=== PATIENT | female | born 1985 | race Two or more races ===

== ENCOUNTER 2016-09-23 20:16 | Emergency (ER) | payer SELFPAY ==
[2016-09-23] MEDS ORDERED: DIPHENHYDRAMINE HCL 50 MG/ML VIAL IV ONE (23:56)
[2016-09-23] MEDS ORDERED: METOCLOPRAMIDE HCL INJ/PF 10 MG/2 ML SDV IV ONE (23:56)
--- NOTE | 2016-09-23 23:58 | ER Document Report ---
ED General - General Chief Complaint: Nausea/Vomiting Stated Complaint: VOMITING Notes: Patient is a 31-year-old female presents with complaint of vomiting . She says for last month she said vomiting but become much worse last week. She says she's having a hard time holding down liquids or food. She's been taking vitamin B 6. She's been taking Phenergan. She continues to vomit despite these. No fevers. No social abdominal pain. No vaginal bleeding. No diarrhea. No other complaints this time. This is her third . She said she had vomiting with the first 2 pregnancies but no or near to the extent that she has but this one. Her first appointment is scheduled for tomorrow. TRAVEL OUTSIDE OF THE [place] IN LAST 30 DAYS: No - Related Data Allergies/Adverse Reactions: No Known Allergies Allergy (Verified 09/24/16 01:27) Past Medical History - Social History Smoking Status: Never Smoker Frequency of alcohol use: None Drug Abuse: None Family History: Reviewed & Not Pertinent Renal/ Medical History: Denies: Hx Peritoneal Dialysis Review of Systems - Review of Systems Notes: My Normal Review Basic REVIEW OF SYSTEMS: CONSTITUTIONAL : Denies fever, chills, or sweats. Denies recent illness. RESPIRATORY: Denies cough, cold, or chest congestion. Denies shortness of breath, difficulty breathing, or wheezing. GASTROINTESTINAL: Denies abdominal pain. Recurrent vomiting Denies constipation. Last BM: GENITOURINARY: Denies difficulty urinating, painful urination, burning, frequency, or blood in urine. FEMALE GENITOURINARY: Denies vaginal bleeding, abnormal or irregular periods. LMP: Currently MUSCULOSKELETAL: Denies neck or back pain or joint pain or swelling. SKIN: Denies rash or skin lesions. NEUROLOGICAL: Denies altered mental status or loss of consciousness. Denies headache. Denies weakness or paralysis or loss of use of either side. Denies problems with gait or speech. Denies sensory or motor loss. ALL OTHER SYSTEMS REVIEWED AND NEGATIVE. Physical Exam - Vital signs Vitals: Temp Pulse BP Pulse Ox 98.3 F 103 H 104/67 100 09/23/16 20:44 09/23/16 20:44 09/23/16 20:44 09/23/16 20:44 - Notes Notes: General Appearance: Well nourished, alert, cooperative, no acute distress, no obvious discomfort. Vitals: reviewed, See vital signs table. Head: no swelling or tenderness to the head Eyes: PERRL, EOMI, Conjuctiva clear Mouth: No decreasd moisture Neck: Supple, no neck tenderness, No thyromegaly Lungs: No wheezing, No rales, No rhonci, No accessory muscle use, good air exchange bilaterally. Heart: Tachycardic rate, Regular rythm, No murmur, no rub Abdomen: Normal BS, soft, No rigidity, No abdominal tenderness, No guarding, no rebound, no abdominal masses, no organomegaly Extremities: strength 5/5 in all extremities, good pulses in all extremities, no swelling or tenderness in the extremities, no edema. Skin: warm, dry, appropriate color, no rash Neuro: speech clear, oriented x 3, normal affect, responds appropriately to questions. Course - Vital Signs Vital signs: Temp Pulse Resp BP Pulse Ox 98.3 F 92 20 111/75 99 09/24/16 00:40 09/24/16 00:40 09/24/16 00:40 09/24/16 00:40 09/24/16 00:40 - Laboratory Result Diagrams: 09/24/16 00:45 09/24/16 00:45 Laboratory results interpreted by me: 09/24/16 09/24/16 09/24/16 00:45 00:45 01:55 WBC 11.3 H Absolute Neutrophils 8.5 H Potassium 3.4 L Calcium 11.2 H Beta HCG, Quant 212890.00 H Urine Protein 30 H Urine Ketones 80 H Ur Leukocyte Esterase MODERATE H Urine Ascorbic Acid 40 H - Transfer of Care Notes: 09/24/16 03:29 The Reglan seems to have worked well for the patient. She is feeling better. She has been drinking water without any further vomiting. Her electrolytes are normal except for mild hypokalemia. I have given her potassium here. She'll be discharged home with prescription for Reglan. She has an appointment with her OB doctor tomorrow. I encourage her to keep this appointment to follow-up with them. Encouraged to return to ER immediately if she has intractable vomiting, fevers, vaginal bleeding, abdominal pain ,or feels unwell. Patient was given 2 L of IV fluids. Patient agrees with plan will be discharged home. Dictation of this chart was performed using voice recognition software; therefore, there may be some unintended grammatical errors. Discharge - Discharge Clinical Impression: Hyperemesis gravidarum Condition: Good Disposition: HOME, SELF-CARE Additional Instructions: Hyperemesis Gravidarum Hyperemesis gravidarum is the medical term for severe vomiting during . We don't know exactly why it occurs, but it's a common problem. Dehydration can occur. This reduces blood flow to the placenta, decreasing the baby's nourishment. The baby will also become dehydrated. There can be harmful changes in blood sodium, potassium, or acid balance. Our goal is to correct, and prevent, dehydration. For severe cases, we give IV fluids. Antinausea medication will be prescribed. (Don't be concerned about " defects" -- the risk to you and your baby from the hyperemesis is the biggest problem. The antinausea medication is very safe at this stage of .) Call the doctor if you have vaginal bleeding, abdominal pain, severe lightheadedness or weakness, or other alarming symptoms. Please return to the ER immediately if you develop recurrent vomiting not responding to the medication, fevers, abdominal pain, or vaginal bleeding. Prescriptions: Metoclopramide HCl [Reglan 10 mg Tablet] 1 tab PO ASDIR PRN #25 tablet PRN Reason:
[2016-09-24] MEDS: NORMAL SALINE 1000 ML 1,000 ML IV PRN ×2 (00:51→01:59)
[2016-09-24 01:10] LABS: ABSOLUTE BASOPHILS # (AUTO) 0.1 10^3/uL (0.0-0.2); ABSOLUTE LYMPHOCYTES (AUTO) 1.9 10^3/uL (0.5-4.7); ABSOLUTE MONOCYTES (AUTO) 0.8 10^3/uL (0.1-1.4); ABSOLUTE NEUT (AUTO) 8.5 10^3/uL (1.7-8.2); BASOPHILS % (AUTO) 0.7 % (0-2); EOSINOPHILS % (AUTO) 0.3 % (0-6); HEMATOCRIT 42.4 % (36.0-47.0); HEMOGLOBIN 14.7 g/dL (12.0-15.5); HGB HCT DIFFERENCE 1.7; LYMPHOCYTES % (AUTO) 16.8 % (13-45); MEAN CORPUSCULAR HEMOGLOBIN 29.1 pg (27.0-33.4); MEAN CORPUSCULAR HGB CONC 34.6 g/dL (32.0-36.0); MEAN CORPUSCULAR VOLUME 84 fl (80-97); MONOCYTES % (AUTO) 7.1 % (3-13); RED BLOOD COUNT 5.03 10^6/uL (3.72-5.28); RED CELL DISTRIBUTION WIDTH 12.3 % (11.5-14.0); SEGMENTED NEUTROPHILS % (AUTO) 75.1 % (42-78); WHITE BLOOD COUNT 11.3 10^3/uL (4.0-10.5)
[2016-09-24 01:51] LABS: ANION GAP 16 (5-19); BLOOD UREA NITROGEN 11 mg/dL (7-20); CALCIUM 11.2 mg/dL (8.4-10.2); CARBON DIOXIDE 23 mmol/L (22-30); CHLORIDE 102 mmol/L (98-107); CREATININE RESULT 0.74 mg/dL (0.52-1.25); GLUCOSE 90 mg/dL (75-110); POTASSIUM 3.4 mmol/L (3.6-5.0); SODIUM 140.5 mmol/L (137-145)
[2016-09-24 02:33] LABS: APPEARANCE,URINE CLOUDY; BILIRUBIN,URINE NEGATIVE (NEGATIVE); GLUCOSE, URINE NEGATIVE (NEGATIVE); KETONES,URINE 80 mg/dL (NEGATIVE); LEUKOCYTE ESTERASE,URINE MODERATE (NEGATIVE); NITRITE,URINE NEGATIVE (NEGATIVE); PROTEIN,URINE 30 mg/dL (NEGATIVE); URINE SPECIFIC GRAVITY 1.025; UROBILINOGEN,URINE NEGATIVE mg/dL (<2.0)
[2016-09-24] MEDS ORDERED: POTASSIUM CHLORIDE 10 MEQ TABLET.SA PO ONE (02:46)
[2016-09-24] MEDS ORDERED: METOCLOPRAMIDE HCL INJ/PF 10 MG/2 ML SDV IV ONE (03:27)
[2016-09-24 03:55] VITALS: BP 128/88
== END 2016-09-24 03:52 | disposition home or self-care (01) ==
LOC: ER 20:16
DX: O21.1 Hyperemesis gravidarum with metabolic disturbance (principal); O26.899 Other specified pregnancy related conditions, unspecified trimester; R00.0 Tachycardia, unspecified; Z79.899 Other long term (current) drug therapy; Z3A.00 Weeks of gestation of pregnancy not specified
CPT/HCPCS: 96376; 99284; 96361; 96374; 96375; 36415; 84702; 83735; 85025; 80048; 81001; J1200; J2765; J7030

== ENCOUNTER 2017-02-23 16:58 | Outpatient (CLI) | payer SELFPAY ==
[2017-02-23 17:58] LABS: APPEARANCE,URINE SLIGHTLY-CLOUDY; BILIRUBIN,URINE NEGATIVE (NEGATIVE); GLUCOSE, URINE NEGATIVE (NEGATIVE); KETONES,URINE NEGATIVE (NEGATIVE); LEUKOCYTE ESTERASE,URINE LARGE (NEGATIVE); NITRITE,URINE NEGATIVE (NEGATIVE); PROTEIN,URINE NEGATIVE (NEGATIVE); URINE SPECIFIC GRAVITY 1.014
[2017-02-23 18:16] LABS: URINE BARBITURATES SCREEN NEGATIVE; URINE METHADONE SCREEN NEGATIVE; URINE OPIATES LOW NEGATIVE; URINE PHENCYCLIDINE SCREEN NEGATIVE
--- NOTE | 2017-02-23 18:35 | Non Stress Test Report ---
Non Stress Test Datetime Report Generated by CPN: 02/23/2017 18:35 DEMOGRAPHIC EGA NST: 33.3 INDICATION Indication for Study: Ordered by Provider MONITORING Monitor Explained: Monitor Explained; Test Explained; Patient Verbalized Understanding Time on Monitor: 02/23/2017 17:38 Time off Monitor: 02/23/2017 18:14 NST Duration: 36 NST INTERVENTIONS NST Interventions: None Physician Notified NST: Dr Alvarez (Annotations: Data stored by CPN on behalf of user) BABY A: [id number] BABY A Movement : Present Contraction Frequency : irregular FHR Baseline : 125 Accelerations : 15X15 Decelerations : None Variability : Moderate 6-25bpm NST Review: Meets Criteria for Reactive NST NST Review and Verified By : LEOBARDO Caballero Results: Reactive NST REPORT Report Trigger: Send Report (Annotations: Data stored by Melissa on behalf of user)
== END 2017-02-23 18:22 | disposition home or self-care (01) ==
LOC: LC 16:58
PROVIDERS: ATTEND Obstetrics & Gynecology
DX: O47.03 False labor before 37 completed weeks of gestation, third trimester (principal); Z3A.33 33 weeks gestation of pregnancy
CPT/HCPCS: 59025; 80307; 81001

== ENCOUNTER 2017-03-26 09:55 | Outpatient (CLI) | payer SELFPAY | END 2017-03-26 10:47 | disposition home or self-care (01) | LOC: LC 09:55 | PROVIDERS: ATTEND Obstetrics & Gynecology | PROC: 4A1HXCZ Monitoring of Products of Conception, Cardiac Rate, External Approach (ICD-10-PCS; principal; 2017-03-26) | DX: O36.5930 Maternal care for other known or suspected poor fetal growth, third trimester, not applicable or unspecified (principal); Z3A.37 37 weeks gestation of pregnancy | CPT/HCPCS: 59025 ==

== ENCOUNTER 2017-03-29 09:20 | Outpatient (CLI) | payer SELFPAY ==
--- NOTE | 2017-03-29 09:23 | Non Stress Test Report ---
Non Stress Test Datetime Report Generated by CPN: 03/29/2017 09:23 DEMOGRAPHIC EGA NST: 37.6 INDICATION Indication for Study: Intrauterine Growth Restriction MONITORING Monitor Explained: Monitor Explained; Test Explained; Patient Verbalized Understanding Time on Monitor: 03/26/2017 10:13 Time off Monitor: 03/26/2017 10:44 NST Duration: 31 NST INTERVENTIONS NST Interventions: PO Hydration; Reposition Patient Physician Notified NST: A. Emmel, CNM BABY A: [id number] BABY A Movement : Present Contraction Frequency : 0 FHR Baseline : 115 Accelerations : 15X15 Decelerations : None Variability : Moderate 6-25bpm NST Review: Meets Criteria for Reactive NST NST Review and Verified By : LEOBARDO Mohan Results: Reactive NST REPORT Report Trigger: Send Report
--- NOTE | 2017-03-29 10:08 | Non Stress Test Report ---
Non Stress Test Datetime Report Generated by CPN: 03/29/2017 10:07 DEMOGRAPHIC EGA NST: 38.2 INDICATION Indication for Study: Intrauterine Growth Restriction MONITORING Monitor Explained: Monitor Explained; Test Explained; Patient Verbalized Understanding Time on Monitor: 03/29/2017 09:31 Time off Monitor: 03/29/2017 09:53 NST Duration: 22 NST INTERVENTIONS NST Interventions: PO Hydration Physician Notified NST: K. Oreilly BABY A Movement : Present Contraction Frequency : 1 traced FHR Baseline : 120 Accelerations : 15X15 Decelerations : None Variability : Moderate 6-25bpm NST Review: Meets Criteria for Reactive NST NST Review and Verified By : Em Fitzpatrick RNWinnie NST Results: Reactive NST REPORT Report Trigger: Send Report
[2017-03-29 10:14] LABS: APPEARANCE,URINE CLOUDY; BILIRUBIN,URINE NEGATIVE (NEGATIVE); GLUCOSE, URINE NEGATIVE (NEGATIVE); KETONES,URINE NEGATIVE (NEGATIVE); LEUKOCYTE ESTERASE,URINE LARGE (NEGATIVE); NITRITE,URINE NEGATIVE (NEGATIVE); PROTEIN,URINE NEGATIVE (NEGATIVE); URINE SPECIFIC GRAVITY 1.009; UROBILINOGEN,URINE NEGATIVE mg/dL (<2.0)
[2017-03-29 10:34] LABS: URINE BARBITURATES SCREEN NEGATIVE; URINE METHADONE SCREEN NEGATIVE; URINE OPIATES LOW NEGATIVE; URINE PHENCYCLIDINE SCREEN NEGATIVE
--- NOTE | 2017-03-29 10:45 | RADIOLOGY REPORT (SQ) ---
EXAM DESCRIPTION: U/S OB LIMITED COMPLETED DATE/TIME: 03/29/2017 10:12 am REASON FOR STUDY: MARYJANE for severe IUGR COMPARISON: None. TECHNIQUE: Limited transabdominal grayscale ultrasound for evaluation of specific requested obstetri lisa parameters. LIMITATIONS: None. FINDINGS: CERVICAL LENGTH: Not measured Closed. MARYJANE: 8.9 cm. FHR: 130 beats per minute. PRESENTATION: Cephalic. OTHER: Gestational age 38 weeks 2 days. Estimated date of delivery 04/10/2017. IMPRESSION: LIMITED OBSTETRICAL ULTRASOUND WITH MEASURED PARAMETERS DELINEATED ABOVE. Trimester of : Third trimester - 28 weeks to delivery. TECHNICAL DOCUMENTATION: JOB ID: [id number] [employer]- All Rights Reserved
== END 2017-03-29 10:44 | disposition home or self-care (01) ==
LOC: LC 09:20
PROVIDERS: ATTEND Obstetrics & Gynecology
PROC: 4A1HXCZ Monitoring of Products of Conception, Cardiac Rate, External Approach (ICD-10-PCS; principal; 2017-03-29)
DX: O36.5930 Maternal care for other known or suspected poor fetal growth, third trimester, not applicable or unspecified (principal); Z3A.38 38 weeks gestation of pregnancy
CPT/HCPCS: 59025; 76815; 80307; 81005; 87086

== ENCOUNTER 2017-04-02 09:08 | Outpatient (CLI) | payer SELFPAY ==
--- NOTE | 2017-04-02 10:35 | Non Stress Test Report ---
Non Stress Test Datetime Report Generated by CPN: 04/02/2017 10:35 DEMOGRAPHIC EGA NST: 38.6 INDICATION Indication for Study: Ordered by Provider Indication for Study (NST) Other: iugr VITAL SIGNS Temperature - NST: 99.0 Pulse - NST: 75 NBPSYS NST: 117 NBPDIA NST: 70 MONITORING Monitor Explained: Monitor Explained; Test Explained; Patient Verbalized Understanding Time on Monitor: 04/02/2017 09:23 Time off Monitor: 04/02/2017 10:01 NST Duration: 38 NST INTERVENTIONS NST Interventions: PO Hydration; Reposition Patient Physician Notified NST: Dr. Alvarez BABY A: [id number] BABY A Movement : Present Contraction Frequency : rare FHR Baseline : 120 Accelerations : 15X15 Decelerations : None Variability : Moderate 6-25bpm NST Review: Meets Criteria for Reactive NST NST Review and Verified By : LEOBARDO Hand Results: Reactive NST REPORT Report Trigger: Send Report
== END 2017-04-02 10:15 | disposition home or self-care (01) ==
LOC: LC 09:08 → LR 04-03 21:31 → UNDOADMIN 04-03 21:31
PROVIDERS: ATTEND Obstetrics & Gynecology
PROC: 4A1HXCZ Monitoring of Products of Conception, Cardiac Rate, External Approach (ICD-10-PCS; principal; 2017-04-02)
DX: O36.5930 Maternal care for other known or suspected poor fetal growth, third trimester, not applicable or unspecified (principal); Z3A.38 38 weeks gestation of pregnancy
CPT/HCPCS: 59025

== ENCOUNTER 2017-04-03 21:46 | Inpatient (IN) | payer SELFPAY ==
[2017-04-03 22:19] LABS: APPEARANCE,URINE CLOUDY; BILIRUBIN,URINE NEGATIVE (NEGATIVE); GLUCOSE, URINE NEGATIVE (NEGATIVE); KETONES,URINE NEGATIVE (NEGATIVE); LEUKOCYTE ESTERASE,URINE LARGE (NEGATIVE); NITRITE,URINE NEGATIVE (NEGATIVE); PROTEIN,URINE NEGATIVE (NEGATIVE); URINE SPECIFIC GRAVITY 1.004; UROBILINOGEN,URINE NEGATIVE mg/dL (<2.0)
[2017-04-03 22:38] LABS: URINE BARBITURATES SCREEN NEGATIVE; URINE METHADONE SCREEN NEGATIVE; URINE OPIATES LOW NEGATIVE; URINE PHENCYCLIDINE SCREEN NEGATIVE
[2017-04-03 22:45] LABS: ABSOLUTE BASOPHILS # (AUTO) 0.1 10^3/uL (0.0-0.2); ABSOLUTE EOSINOPHILS # (AUTO) 0.1 10^3/uL (0.0-0.6); ABSOLUTE LYMPHOCYTES (AUTO) 1.7 10^3/uL (0.5-4.7); ABSOLUTE MONOCYTES (AUTO) 0.7 10^3/uL (0.1-1.4); ABSOLUTE NEUT (AUTO) 4.5 10^3/uL (1.7-8.2); BASOPHILS % (AUTO) 0.9 % (0-2); HEMATOCRIT 29.9 % (36.0-47.0); HGB HCT DIFFERENCE 0.1; LYMPHOCYTES % (AUTO) 24.5 % (13-45); MEAN CORPUSCULAR HEMOGLOBIN 28.1 pg (27.0-33.4); MEAN CORPUSCULAR HGB CONC 33.3 g/dL (32.0-36.0); MEAN CORPUSCULAR VOLUME 84 fl (80-97); MONOCYTES % (AUTO) 9.8 % (3-13); RED BLOOD COUNT 3.54 10^6/uL (3.72-5.28); RED CELL DISTRIBUTION WIDTH 16.1 % (11.5-14.0); SEGMENTED NEUTROPHILS % (AUTO) 63.8 % (42-78); WHITE BLOOD COUNT 7.1 10^3/uL (4.0-10.5)
[2017-04-03] MEDS ORDERED: OXYTOCIN/NORMAL SALINE 20 UNIT/1,000 ML RTUINJ ONE (22:48)
[2017-04-03] MEDS ORDERED: RINGERS SOLUTION,LACTATED 300 ML IV ONE (22:53)
[2017-04-03] MEDS ORDERED: OXYTOCIN/NORMAL SALINE 20 UNIT/1,000 ML RTUINJ IV PRN (22:53)
[2017-04-03] MEDS ORDERED: PENICILLIN G-K 5 MILLION UNIT VIAL ONE (23:05)
[2017-04-03] MEDS ORDERED: PENICILLIN G POTASSIUM 5,000,000 UNIT in DEXTROSE 5%-WATER 100 ML IV ONE (23:08)
[2017-04-04] MEDS ORDERED: PENICILLIN G-K 5 MILLION UNIT VIAL ONE ×4 (03:12→14:57)
[2017-04-04] MEDS: RINGERS SOLUTION,LACTATED 1,000 ML IV PRN ×3 (03:23→13:43)
[2017-04-04] MEDS: PENICILLIN G POTASSIUM 2,500,000 UNIT in DEXTROSE 5%-WATER 50 ML IV SCH ×3 (03:23→11:18)
[2017-04-04] MEDS ORDERED: FENTANYL/BUPIVACAINE/NS/PF 200 MCG/100 ML RTUINJ EPI ONE (13:13)
[2017-04-04] MEDS ORDERED: EPHEDRINE SULFATE INJ 50 MG/1 ML AMPULE ONE (13:13)
[2017-04-04] MEDS ORDERED: MISOPROSTOL 0.2 MG TABLET ONE (13:14)
[2017-04-04] MEDS ORDERED: BUPIVACAINE HCL 0.25 % INJ/PF (2.5 MG/1 ML) 30 ML VIAL ONE (13:14)
[2017-04-04] MEDS ORDERED: LIDOCAINE 1% INJ-PF (10 MG/ML) 30 ML SDV ONE (13:15)
[2017-04-04] MEDS ORDERED: OXYTOCIN/NORMAL SALINE 20 UNIT/1,000 ML RTUINJ IV PRN (17:37)
[2017-04-04] MEDS ORDERED: ACETAMINOPHEN 650 MG SUPP.RECT PR PRN (17:37)
[2017-04-04] MEDS ORDERED: DIPHENHYDRAMINE HCL 25 MG CAPSULE PO PRN (17:37)
[2017-04-04] MEDS ORDERED: BENZOCAINE/MENTHOL AEROSOL SPRAY 56 ML TOP PRN (17:37)
[2017-04-04] MEDS ORDERED: PROMETHAZINE HCL INJ 25 MG/1 ML VIAL IV PRN (17:37)
[2017-04-04] MEDS ORDERED: MEASLES,MUMPS&RUBELLA VACC/PF 0.5 ML VIAL SUBCUT PRN (17:37)
[2017-04-04] MEDS ORDERED: ACETAMINOPHEN WITH CODEINE #3 TABLET PO PRN ×2 (17:37)
[2017-04-04] MEDS ORDERED: PROMETHAZINE HCL 25 MG SUPP.RECT PR PRN (17:37)
[2017-04-04] MEDS ORDERED: PSEUDOEPHEDRINE HCL 30 MG TABLET PO PRN (17:37)
[2017-04-04] MEDS ORDERED: PROMETHAZINE HCL 25 MG TABLET PO PRN (17:37)
[2017-04-04] MEDS ORDERED: ZOLPIDEM TARTRATE 5 MG TABLET PO PRN (17:37)
[2017-04-04] MEDS ORDERED: GLYCERIN/WITCH HAZEL LEAF 1 EACH MED..PAD TP PRN (17:37)
[2017-04-04] MEDS ORDERED: DIPH/PERTUSS(ACELL)/TETANUS VAC/PF 0.5 ML SYR (>=10YO) IM PRN (17:37)
[2017-04-04] MEDS ORDERED: NA PHOS,M-B/NA PHOS,DI-BA (ADULT) 133 ML ENEMA PR PRN (17:37)
[2017-04-04] MEDS ORDERED: MAGNESIUM HYDROXIDE SUSP 30 ML UDCUP PO PRN (17:37)
[2017-04-04] MEDS ORDERED: DIBUCAINE 1% OINTMENT 28 GM TP PRN (17:37)
[2017-04-04] MEDS ORDERED: OXYTOCIN/NORMAL SALINE 20 UNIT/1,000 ML RTUINJ ONE (18:13)
--- NOTE | 2017-04-04 19:53 | Delivery Summary ---
Del Sum A-C Datetime Report Generated by CPN: 04/04/2017 19:53 DELIVERY PERSONNEL DELIVERY PERSONNEL: [id number] Delivery Doctor:: Barbi Ortiz MD Labor and Delivery Nurse:: Kayla Palacios RNphotolithographer Nurse:: Bekah Ugalde RN Nursery Nurse:: Anjana Stern RN Student Observers:: MARGARETTE Bazzi MATERNAL INFORMATION Delivery Anesthesia: Epidural Medications After Delivery: Pitocin Bolus-Please Comment Meds After Delivery Comment: Pitocin 20 units in 1 L NS bolusing per order Estimated Blood Loss (ml): 250 Maternal Complications: None LABOR SUMMARY EDC: 04/10/2017 00:00 No. Babies in Womb: 1 Attempted: Yes Labor Anesthesia: Epidural LABOR INFORMATION Reason for Induction: Intrauterine Growth Retardation Onset of Labor: 04/04/2017 13:05 Complete Dilatation: 04/04/2017 17:30 Oxytocin: Induction Group B Beta Strep: Positive Antibiotics # of Doses: 5 Antibiotics Time of Last Dose: 1508 Name of Antibiotic Given: PCN Steroids Given: None Reason Steroids Not Administered: Not Applicable MEMBRANES Membranes Rupture Method: Artificial Rupture of Membranes: 04/04/2017 08:52 Length of Rupture (hr): 9.22 Amniotic Fluid Color: Clear Amniotic Fluid Amount: Scant Amniotic Fluid Odor: Normal STAGES OF LABOR Stage 1 hr: 4 Stage 1 min: 25 Stage 2 hr: 0 Stage 2 min: 35 Stage 3 hr: 0 Stage 3 min: 5 Total Time in Labor hr: 5 Total Time in Labor min: 5 VAGINAL DELIVERY Episiotomy: None Laceration #1: Vaginal Laceration Extension #1: First Degree Laceration #2: None Laceration #3: None Laceration Repair: Not Applicable Laceration Repair Note: very small labial laceration not in need of repair and not bleeding Sponge Count Correct: N/A Sharps Count Correct: N/A CSECTION DELIVERY Primary Indication: N/A Secondary Indication: N/A CSection Incidence: N/A Labor: N/A Elective: N/A CSection Incision: N/A BABY A INFORMATION Delivery Date/Time: 04/04/2017 18:05 Method of Delivery: Vaginal Born in Route : No : Successful Forceps: N/A Vacuum Extraction: N/A Shoulder Dystocia : Yes SHOULDER DYSTOCIA BABY A Delivery of Head: 04/04/2017 18:03 Time Head to Delivery : 2.0 1st Intervention to Resolve: McRobert's Maneuver 2nd Intervention to Resolve: Suprapubic Pressure 3rd Intervention to Resolve: Albrecht Maneuver Verify NO Fundal Pressure: No Fundal Pressure Applied Arm Under Symphisis at Del: Left PRESENTATION/POSITION BABY A Presentation: Cephalic Cephalic Presentation: Vertex Vertex Position: Right Occipital Anterior Breech Presentation: N/A PLACENTA INFORMATION BABY A Placenta Delivery Time : 04/04/2017 18:10 Placenta Method of Delivery: Spontaneous Placenta Status: Delivered SCORES BABY A Heart Rate 1 min: >100 bpm Resp Effort 1 min: Good Cry Reflex Irritability 1 min: Cough or Sneeze or Pulls Away Muscle Tone 1 min: Active Motion Color 1 min: Blue/Pale Resuscitation Effort 1 min: Tactile Stimulation SCORE 1 MIN: 8 Heart Rate 5 min: >100 bpm Resp Effort 5 min: Good Cry Reflex Irritability 5 min: Cough or Sneeze or Pulls Away Muscle Tone 5 min: Active Motion Color 5 min: Body [place], Extremities Blue Resuscitation Effort 5 min: Tactile Stimulation SCORE 5 MIN: 9 INFORMATION BABY A Gestational Age at Delivery: 39.1 Gestational Status: Full Term- 39- 40.6 Weeks Infant Outcome : Liveborn Condition : Stable Infant Sex: Female IDENTIFICATION BABY A Infant Verification Date/Time: 04/04/2017 18:30 ID Band Number: [id number] Mother's Name Verified: Yes Infant RN Verifying Infant: Gil PalaciosLEOBARDO A. Murphy, RN WEIGHT/LENGTH BABY A Infant Birthweight (gm): 2910 Infant Weight (lb): 6 Weight (oz): 7 Length (in): 19.50 Length (cm): 49.53 CORD INFORMATION BABY A No. Cord Vessels: 3 Nuchal Cord : N/A Cord Blood Taken: Yes-For Eval (Mom's Blood Type - or O+) Suction: Mouth; Nose ASSESSMENT BABY A Complications: Shoulder Dystocia Physical Findings at Delivery: Puncture Wound from Scalp Electrode Infant Respirations: Appears Normal Skin to Skin: Yes Skin to Skin Time (min): 30 Hoisting Machine Operator/ALS Called : No Infant Care By: Radha Ch RN Transferred To: Remains with Mother BABY B INFORMATION : N/A SIGNATURES Signature: with User ID: [email or web address]
--- NOTE | 2017-04-04 20:29 | Admission Physical ---
Datetime Report Generated by CPN: 04/04/2017 20:28 CURRENT ADMISSION Chief Complaint: Scheduled Induction of Labor Indication for Induction: IUGR Indication for Induction: Term, Intrauterine ; Induction of Labor Indication for Induction- Other: 6% per [facility] records Admit Plan: Admit to Unit; Initiate Labor Induction Protocol Admit Plan- Other: Patient has had previous c/section then subsequent in [place]. Last child was 8 years ago. ALLERGIES Medication Allergies: No Medication Allergies: No Known Allergies (04/03/2017) Medication Allergies: No Known Allergies (03/29/2017) Medication Allergies: No Known Allergies (03/26/2017) Medication Allergies: No Known Allergies (09/24/2016) Latex: Latex Allergies OBSTETRICAL HISTORY EDC: 04/10/2017 00:00 : 3 Para: 2 Term: 2 : 0 SAB: 0 IAB: 0 Ectopic: 0 Livin Cesareans: 1 VBACs: 1 Multiple Births: 0 Gestational Diabetes: No Rh Sensitization: No Incompetent Cervix: No COLEEN: No Infertility: No ART Treatment: No Uterine Anomaly: No IUGR: No Hx Previous C/S: Yes Macrosomia: No Hx Loss/Stillborn: No PIH: No Hx : No Placenta Previa/Abruption: No Depression/PP Depression: Yes PTL/PROM: No Post Hemorrhage: No Current Procedures: Ultrasound; NST Obstetrical History Comments: G1- 2000 male for breech (done in [place]) G2- 2007 female (in [place]) G3- Current SEE RECORDS Alcohol: No Marijuana : No Cocaine: No Other Illicit Drugs: No Cigarettes: Never Smoker. [id number] MEDICAL HISTORY Diabetes: No Blood Transfusion: No Pulmonary Disease (Asthma, TB): No Breast Disease: No Hypertension: No Mural Painter Surgery: No Heart Disease: No Hosp/Surgery: Yes Autoimmune Disorder: No Anesthetic Complications: No Kidney Disease: No Abnormal Pap Smear: No Neuro/Epilepsy: No Psychiatric Disorders: No Other Medical Diseases: No Hepatitis/Liver Disease: No Significant Family History: No Varicosities/Phlebitis: No Trauma/Violence : No Thyroid Dysfunction: No Medical History Comments: x 1, childbirth x 2; depression after of her [id number] during this . INFECTIOUS HISTORY Gonorrhea: No Genital Herpes: No Chlamydia: No Tuberculosis: No Syphilis: No Hepatitis: No HIV/AIDS Exposure: No Rash or Viral Illness: No HPV: No PHYSICAL EXAM General: Normal HEENT: Normal Neurologic: Normal Thyroid: Normal Heart: Normal Lungs: Normal Breast: Normal Back: Normal Abdomen: Normal Genitourinary Exam: Normal Extremities: Normal DTRs: Normal Pelvic Type: Adequate Vital Signs: Reviewed VAGINAL EXAM Dilatation: 1 Effacement: 0 Station: -3 MEMBRANES Pooling: Negative Membranes: Intact FETUS A EGA: 39.1 Monitoring: External US FHR- Baseline: 120 Variability: Moderate 6-25bpm Accelerations: 15X15 Decelerations: None FHR Category: Category I Estimated Weight (gm): 2500 Presentation: Vertex PLANS FOR LABOR AND DELIVERY Labor and Delivery: None Pain Management: Medications; Epidural Feeding Preference: Both Benefit of Breast Feed Discussed: Yes Circumcision: N/A INFORMED CONSENT Signature: with User ID: [email or web address]
[2017-04-04] MEDS: IBUPROFEN 800 MG TABLET PO SCH (21:11)
[2017-04-04] MEDS: FAMOTIDINE 20 MG TABLET PO SCH (21:12)
[2017-04-04] MEDS: DOCUSATE SODIUM 100 MG CAPSULE PO SCH (21:53)
[2017-04-04] MEDS: FERROUS SULFATE 325 MG TABLET PO SCH (21:53)
[2017-04-05] MEDS: IBUPROFEN 800 MG TABLET PO SCH ×3 (05:50→21:13)
[2017-04-05 06:56] LABS: HEMOGLOBIN 9.6 g/dL (12.0-15.5); HGB HCT DIFFERENCE -0.2; MEAN CORPUSCULAR HEMOGLOBIN 27.9 pg (27.0-33.4); MEAN CORPUSCULAR HGB CONC 33.2 g/dL (32.0-36.0); MEAN CORPUSCULAR VOLUME 84 fl (80-97); RED BLOOD COUNT 3.45 10^6/uL (3.72-5.28); WHITE BLOOD COUNT 12.3 10^3/uL (4.0-10.5)
[2017-04-05] MEDS: PRENATAL VITAMIN W-O CA NO5/FE FUMARATE/FA CAPSULE PO SCH (09:28)
[2017-04-05] MEDS: FAMOTIDINE 20 MG TABLET PO SCH ×2 (09:29→21:14)
[2017-04-05] MEDS: SENNOSIDES/DOCUSATE 8.6-50 MG 1 EACH TABLET PO SCH (09:29)
[2017-04-05] MEDS: FERROUS SULFATE 325 MG TABLET PO SCH ×2 (09:29→18:11)
[2017-04-05] MEDS: DOCUSATE SODIUM 100 MG CAPSULE PO SCH ×2 (09:29→18:11)
--- NOTE | 2017-04-05 14:25 | PDOC PROGRESS REPORT ---
Subjective-OB Subjective: Post Delivery Day:1 32 year old G3 now P3 s/p ppd1. Ambulating and without difficulty. Denies any needs at this time Physical Exam (OB) Vital Signs: Temp Pulse Resp BP Pulse Ox 97.9 F 61 16 135/55 H 100 04/05/17 08:28 04/05/17 08:28 04/05/17 08:28 04/05/17 08:28 04/05/17 08:28 Intake & Output 04/04/17 04/05/17 04/06/17 06:59 06:59 06:59 Intake Total 100 Balance 100 Weight 58 kg - General General Appearance: Appears well In distress: None - PIH/Pre-Eclampsia DTR's: 2 + Clonus: Negative Headache: Absent Epigastric Pain: No Visual Changes: No - Episiotomy/Laceration Site Condition: Well Approximated - Lochia Lochia Amount: Small 10-25 ml Lochia Color: Rubra/Red - Abdomen Description: Soft, Flat Hernia Present: No Fundal Description: Firm, Midline Fundal Height: u/u - u/2 - Respiratory Respiratory Status: No respiratory distress - Extremities Upper extremity: Normal inspection Lower extremities: Normal inspection - Neurological Cognition: Normal Orientation: AAOx4 - Psychological Associated symptoms: Normal affect, Normal mood Objective-Diagnostic Laboratory: 04/05/17 06:45 04/05/17 06:45 WBC 12.3 H RBC 3.45 L Hgb 9.6 L Hct 29.0 L MCV 84 MCH 27.9 MCHC 33.2 RDW 16.0 H Plt Count 156 Assessment and Plan(PN) - Assessment and Plan (1) (vaginal after ) Is this a current diagnosis for this admission?: Yes Plan: routine pp care (2) Anemia affecting in third trimester Is this a current diagnosis for this admission?: Yes Plan: continue feso4 bid and increase dietary iron (3) Shoulder dystocia during labor and delivery, delivered Is this a current diagnosis for this admission?: Yes Plan: delivered (4) Intrauterine growth restriction (IUGR) affecting care of mother, third trimester, single gestation Is this a current diagnosis for this admission?: Yes Plan: delivered - Time Spent with Patient Time with patient: Less than 15 minutes Medications reviewed and adjusted accordingly: Yes - Disposition Anticipated Discharge: Home Within: within 24 hours
[2017-04-06] MEDS: IBUPROFEN 800 MG TABLET PO SCH ×2 (05:28→13:57)
[2017-04-06 08:15] VITALS: BP 112/69
[2017-04-06] MEDS: FERROUS SULFATE 325 MG TABLET PO SCH ×2 (09:37→18:21)
[2017-04-06] MEDS: FAMOTIDINE 20 MG TABLET PO SCH (09:38)
[2017-04-06] MEDS: DOCUSATE SODIUM 100 MG CAPSULE PO SCH ×2 (09:39→18:21)
[2017-04-06] MEDS: PRENATAL VITAMIN W-O CA NO5/FE FUMARATE/FA CAPSULE PO SCH (09:39)
[2017-04-06] MEDS: SENNOSIDES/DOCUSATE 8.6-50 MG 1 EACH TABLET PO SCH (09:39)
--- NOTE | 2017-04-06 11:11 | PDOC PROGRESS REPORT ---
Subjective-OB Subjective: Post Delivery Day: 32 year old. Denies any needs at this time ff@u-1 mild lochia well late discharge due to infant spitting up Physical Exam (OB) Vital Signs: Temp Pulse Resp BP Pulse Ox 97.5 F 58 L 14 112/69 100 04/06/17 08:43 04/06/17 08:43 04/06/17 08:43 04/06/17 08:43 04/06/17 08:43 Intake & Output 04/05/17 04/06/17 04/07/17 06:59 06:59 06:59 Intake Total 100 200 Balance 100 200 - PIH/Pre-Eclampsia DTR's: 2 + Clonus: Negative Headache: Absent Epigastric Pain: No Visual Changes: No - Lochia Lochia Amount: Small 10-25 ml Lochia Color: Rubra/Red - Abdomen Description: Soft, Flat Hernia Present: No Fundal Description: Firm Fundal Height: u/u - u/2 Objective-Diagnostic Laboratory: 04/05/17 06:45 Assessment and Plan(PN) - Time Spent with Patient Medications reviewed and adjusted accordingly: Yes - Disposition Anticipated Discharge: Home
--- NOTE | 2017-04-06 11:12 | PDOC DISCHARGE SUMMARY ---
Final Diagnosis Discharge Date: 04/06/17 - Final Diagnosis (1) Anemia affecting in third trimester Is this a current diagnosis for this admission?: Yes (2) Intrauterine growth restriction (IUGR) affecting care of mother, third trimester, single gestation Is this a current diagnosis for this admission?: Yes (3) (vaginal after ) Is this a current diagnosis for this admission?: Yes Discharge Data - Discharge Medication Home Medications: Diphenhydramine HCl [Benadryl] 25 mg PO PRN PRN 02/23/17 Metoclopramide HCl [Reglan 10 mg Tablet] 1 tab PO DAILY 03/26/17 Vit/Iron Fum/Folic AC [ Tablet] 1 tab PO DAILY 03/26/17 Reason(s) for Admission: Onset of Labor Intrapartum Procedure(s): Spontaneous Vaginal Delivery Complication(s): Laceration-Labial Laceration-Degree: 1st - Diagnosis Test Laboratory: Temp Pulse Resp BP Pulse Ox 97.5 F 58 L 14 112/69 100 04/06/17 08:43 04/06/17 08:43 04/06/17 08:43 04/06/17 08:43 04/06/17 08:43 04/03/17 04/03/17 04/05/17 22:00 22:35 06:45 RBC 3.54 L 3.45 L Hgb 10.0 L 9.6 L Hct 29.9 L 29.0 L Urine Opiates Screen NEGATIVE - Discharge information/Instructions Discharge Activity: Activity As Tolerated, No Lifting Over 10 Pounds, Pelvic Rest, No tub bath Discharge Diet: Regular Disposition: HOME, SELF-CARE Follow up with: [facility] in: 4
== END 2017-04-06 19:10 | disposition home or self-care (01) | DRG 775 ==
LOC: LR 21:46 → 2S 04-04 20:27
PROVIDERS: ADMIT Obstetrics & Gynecology; ATTEND Obstetrics & Gynecology
PROC: 10E0XZZ Delivery of Products of Conception, External Approach (ICD-10-PCS; principal; 2017-04-03)
PROC: 0UQMXZZ Repair Vulva, External Approach (ICD-10-PCS; 2017-04-03)
DX: O36.5930 Maternal care for other known or suspected poor fetal growth, third trimester, not applicable or unspecified (principal); O99.824 Streptococcus B carrier state complicating childbirth; O70.0 First degree perineal laceration during delivery; O66.0 Obstructed labor due to shoulder dystocia; O34.211 Maternal care for low transverse scar from previous cesarean delivery; N85.8 Other specified noninflammatory disorders of uterus; O99.02 Anemia complicating childbirth; D64.9 Anemia, unspecified; Z3A.39 39 weeks gestation of pregnancy; Z37.0 Single live birth
CPT/HCPCS: 36415; 59025; 80307; 81005; 85025; 85027; 86592; 86850; 86900; 86901; 86920; J2540; J2590; J3490